=== PATIENT | female | born 1960 | race Caucasian/White ===

== ENCOUNTER 2022-05-09 14:06 | Outpatient (CLI) | payer OTHER | END 2022-05-09 14:07 | disposition home or self-care (01) | LOC: MRI 14:06 | PROVIDERS: ATTEND Podiatrist | DX: L97.501 Non-pressure chronic ulcer of other part of unspecified foot limited to breakdown of skin (principal) ==

== ENCOUNTER 2023-02-20 09:25 | Inpatient (IN) | payer OTHER ==
[2023-02-20] MEDS ORDERED: fentaNYL 50 mcg/mL 1 mL Vial ONE ×2 (10:14)
[2023-02-20] MEDS ORDERED: Pantoprazole 40 MG VIAL ONE (10:20)
[2023-02-20 10:31] LABS: Hemoglobin 10.7 g/dL (12.0-16.0); Mean Corpuscular HGB CONC 32.4 g/dL (32.0-36.0); Mean Corpuscular Hemoglobin 35.2 pg (27.0-31.0); Mean Platelet Volume 7.7 fL (7.4-10.4); Platelet Count 313 10x3/uL (130-400); RBC Distribution Width 13.6 % (11.5-14.5); Red Blood Cell (RBC) Count 3.06 mill/uL (4.20-5.40); White Blood Cell (WBC) Count 13.7 10x3/uL (4.8-10.8)
[2023-02-20 10:32] LABS: #Basophils 0.1 thou/uL (0.0-0.2); #Eosinphils 0.1 thou/uL (0.0-0.7); #Lymphocytes 2.1 thou/uL (1.20-3.40); #Monocytes 1.2 thou/uL (0.11-0.59); #Neutrophils 10.1 thou/uL (1.40-6.50); %Basophils 0.9 % (0.0-1.0); %Eosinophils 0.8 % (0.0-10.0); %Lymphocytes 15.2 % (21.0-51.0); %Monocytes 9.1 % (0.0-10.0)
[2023-02-20 10:47] LABS: INR-International Normal Ratio 0.9; Prothrombin Time 12.7 sec (12.0-14.7)
[2023-02-20 10:51] LABS: ALT (SGPT) 48 U/L (8-55); AST (SGOT) 76 U/L (5-34); Albumin 3.2 g/dL (3.4-4.8); Alkaline Phosphatase 104 U/L (40-110); Anion Gap 16 mmol/L (10-20); BUN (Urea Nitrogen) 10 mg/dL (9.8-20.1); Bilirubin, Total 0.6 mg/dL (0.2-1.2); Calc. Creatinine Clearance 0 mL/min (70-130); Calcium 8.2 mg/dL (7.8-10.44); Carbon Dioxide 20 mmol/L (23-31); Chloride 99 mmol/L (98-107); Estimated GFR 92; Globulin 3.2 g/dL (2.4-3.5); Glucose 92 mg/dL (80-115); Potassium 3.7 mmol/L (3.5-5.1); Protein, Total 6.4 g/dL (5.8-8.1); Sodium 131 mmol/L (136-145)
[2023-02-20 10:54] LABS: PTT 29.8 sec (22.9-36.1)
[2023-02-20 11:01] LABS: MDiff Complete? YES; Macrocytosis SLIGHT = 6-15 cells (100X) (0-5/hpf); Platelet Morphology Comment Appears Adequate; Polychromasia SLIGHT = 2-3 cells (100X) (0-2/hpf)
[2023-02-20] MEDS ORDERED: cefTRIAXone (ROCEPHIN) 2 GM VIAL ONE (11:19)
[2023-02-20] MEDS ORDERED: Morphine 4 MG/ML VIAL ONE (12:06)
[2023-02-20] MEDS ORDERED: Cyclobenzaprine 10 MG TAB ONE (12:06)
[2023-02-20] MEDS ORDERED: Morphine 4 MG/ML VIAL SLOW IVP PRN (12:11)
[2023-02-20] MEDS ORDERED: hydrALAZINE 20 MG/ML VIAL SLOW IVP PRN (12:11)
[2023-02-20] MEDS ORDERED: Dextrose 5% in Water 1,000 ML IV PRN (12:11)
[2023-02-20] MEDS ORDERED: Ondansetron PF 4 MG/2 ML Vial IVP PRN (12:11)
[2023-02-20] MEDS ORDERED: Dextrose 50% Abboject 50 ML SYRINGE SLOW IVP PRN (12:11)
[2023-02-20 12:18] LABS: Bilirubin Negative (Negative); Blood, Urine Negative (Negative); Clarity Turbid (Clear); Glucose, Urine (Dipstick) Normal (Negative); Ketone, Urine Trace mg/dL (Negative); Leukocyte Negative Leu/uL (Negative); Nitrite Negative (Negative); Protein, Urine (Dipstick) Negative (Neg-Trace); Specific Gravity, Urine 1.012 (1.002-1.036); Urobilinogen Normal mg/dL (Less than 2)
[2023-02-20 12:43] LABS: Alcohol 211 mg/dL (Less than 10); Magnesium 1.6 mg/dL (1.6-2.6)
[2023-02-20] MEDS ORDERED: Acetaminophen 500 MG TAB PO SCH (13:15)
[2023-02-20] MEDS ORDERED: traMADol HCl 50 MG TAB PO SCH (13:15)
[2023-02-20 13:21] LABS: Phosphorus 3.3 mg/dL (2.3-4.7)
[2023-02-20 13:40] LABS: Lactic Acid 2.4 mmol/L (0.5-2.2)
[2023-02-20] MEDS ORDERED: Magnesium 2 GM/50 ML(in water) 2 GM in Premix Bag 1 BAG IVPB SCH (15:00)
[2023-02-20] MEDS: Gabapentin 300 MG CAP PO SCH ×2 (15:19→21:07)
[2023-02-20] MEDS ORDERED: CEFAZOLIN 2 GM in Sodium Chloride 0.9% 100 ML IVPB SCH (16:15)
[2023-02-20] MEDS: Acetaminophen 500 MG TAB PO SCH (18:02)
[2023-02-20] MEDS: traMADol HCl 50 MG TAB PO SCH (18:02)
[2023-02-20] MEDS: Oxazepam 10 MG CAP PO SCH (18:03)
[2023-02-20] MEDS ORDERED: Famotidine 20 MG TAB PO SCH (21:00)
[2023-02-20] MEDS: Cyclobenzaprine 10 MG TAB PO PRN (21:07)
[2023-02-20] MEDS: Pantoprazole 40 MG VIAL IVP SCH (21:08)
[2023-02-20] MEDS: Senokot S 8.6-50 MG TAB PO SCH (21:08)
[2023-02-20 21:17] VITALS: BMI 24.6
[2023-02-21] MEDS: Acetaminophen 500 MG TAB PO SCH ×5 (00:49→23:44)
[2023-02-21] MEDS: Oxazepam 10 MG CAP PO SCH ×5 (00:49→23:44)
[2023-02-21] MEDS: traMADol HCl 50 MG TAB PO SCH ×5 (00:50→23:43)
[2023-02-21 05:39] LABS: #Basophils 0.1 thou/uL (0.0-0.2); #Eosinphils 0.2 thou/uL (0.0-0.7); #Lymphocytes 1.7 thou/uL (1.20-3.40); #Monocytes 1.2 thou/uL (0.11-0.59); #Neutrophils 6.4 thou/uL (1.40-6.50); %Basophils 1.1 % (0.0-1.0); %Eosinophils 1.6 % (0.0-10.0); %Monocytes 12.8 % (0.0-10.0); %Neutrophils 66.5 % (42.0-75.0); Hemoglobin 9.1 g/dL (12.0-16.0); Mean Corpuscular HGB CONC 34.9 g/dL (32.0-36.0); Mean Platelet Volume 8.2 fL (7.4-10.4); Platelet Count 238 10x3/uL (130-400); RBC Distribution Width 13.5 % (11.5-14.5); Red Blood Cell (RBC) Count 2.39 mill/uL (4.20-5.40); White Blood Cell (WBC) Count 9.7 10x3/uL (4.8-10.8)
[2023-02-21 06:00] LABS: Anion Gap 11 mmol/L (10-20); BUN (Urea Nitrogen) 16 mg/dL (9.8-20.1); Calc. Creatinine Clearance 90 mL/min (70-130); Calcium 8.2 mg/dL (7.8-10.44); Carbon Dioxide 26 mmol/L (23-31); Chloride 100 mmol/L (98-107); Estimated GFR 84; Glucose 97 mg/dL (80-115); Magnesium 2.1 mg/dL (1.6-2.6); Phosphorus 3.5 mg/dL (2.3-4.7); Potassium 4.8 mmol/L (3.5-5.1); Sodium 132 mmol/L (136-145)
[2023-02-21] MEDS ORDERED: Multivitamin W/ Minerals 1 TAB PO SCH (09:00)
[2023-02-21] MEDS ORDERED: Folic Acid 1 MG TAB PO SCH (09:00)
[2023-02-21] MEDS: Gabapentin 300 MG CAP PO SCH ×3 (09:15→19:10)
[2023-02-21] MEDS: Thiamine 100 MG TAB PO SCH (09:16)
[2023-02-21] MEDS: Senokot S 8.6-50 MG TAB PO SCH ×2 (09:16→19:09)
[2023-02-21] MEDS: Polyethylene Glycol 3350 17 GM Packet PO SCH (09:16)
[2023-02-21] MEDS ORDERED: CEFAZOLIN 2 GM VIAL ONE (15:56)
[2023-02-21] MEDS ORDERED: Sodium Chloride 0.9% 100 ML ONE (15:56)
[2023-02-21] MEDS ORDERED: Dexamethasone 20 MG/5 ML VIAL ONE (16:09)
[2023-02-21] MEDS ORDERED: Ondansetron PF 4 MG/2 ML Vial ONE (16:09)
[2023-02-21] MEDS ORDERED: PROPOFOL 200 MG/20 ML VIAL ONE (16:09)
[2023-02-21] MEDS ORDERED: Lidocaine 1% PF 5 ML VIAL ONE (16:09)
[2023-02-21] MEDS ORDERED: HYDROmorphone 2 MG/ML VIAL SLOW IVP PRN (17:31)
[2023-02-21] MEDS ORDERED: Ondansetron HCl/PF 4 MG/2 ML Vial IVP PRN (17:31)
[2023-02-21] MEDS ORDERED: HYDROmorphone 2 MG/ML VIAL ONE (17:54)
[2023-02-21] MEDS ORDERED: fentaNYL 50 mcg/mL 1 mL Vial ONE (18:23)
[2023-02-21] MEDS: Cyclobenzaprine 10 MG TAB PO PRN (22:10)
[2023-02-21] MEDS: Pantoprazole 40 MG VIAL IVP SCH (22:11)
[2023-02-21] MEDS: CEFAZOLIN 2 GM in Sodium Chloride 0.9% 100 ML IVPB SCH (23:52)
[2023-02-22] MEDS: traMADol HCl 50 MG TAB PO PRN (03:07)
[2023-02-22] MEDS: traMADol HCl 50 MG TAB PO SCH ×5 (03:07→22:53)
[2023-02-22] MEDS: Cyclobenzaprine 10 MG TAB PO PRN ×2 (03:09→23:54)
[2023-02-22 05:58] LABS: #Lymphocytes 0.8 thou/uL (1.20-3.40); #Monocytes 0.5 thou/uL (0.11-0.59); #Neutrophils 10.2 thou/uL (1.40-6.50); %Eosinophils 0.2 % (0.0-10.0); %Lymphocytes 6.5 % (21.0-51.0); %Neutrophils 89.2 % (42.0-75.0); Hemoglobin 8.3 g/dL (12.0-16.0); Mean Corpuscular HGB CONC 33.7 g/dL (32.0-36.0); Mean Corpuscular Hemoglobin 37.3 pg (27.0-31.0); Mean Platelet Volume 8.5 fL (7.4-10.4); Platelet Count 235 10x3/uL (130-400); RBC Distribution Width 13.2 % (11.5-14.5); Red Blood Cell (RBC) Count 2.22 mill/uL (4.20-5.40); White Blood Cell (WBC) Count 11.5 10x3/uL (4.8-10.8)
[2023-02-22 06:23] LABS: Anion Gap 11 mmol/L (10-20); BUN (Urea Nitrogen) 12 mg/dL (9.8-20.1); Calc. Creatinine Clearance 91 mL/min (70-130); Calcium 8.1 mg/dL (7.8-10.44); Carbon Dioxide 25 mmol/L (23-31); Chloride 103 mmol/L (98-107); Estimated GFR 85; Glucose 181 mg/dL (80-115); Magnesium 1.9 mg/dL (1.6-2.6); Phosphorus 3.2 mg/dL (2.3-4.7); Potassium 4.1 mmol/L (3.5-5.1); Sodium 135 mmol/L (136-145)
[2023-02-22] MEDS: Acetaminophen 500 MG TAB PO SCH ×4 (06:34→22:54)
[2023-02-22] MEDS: Oxazepam 10 MG CAP PO SCH ×4 (06:35→22:54)
[2023-02-22] MEDS ORDERED: Gabapentin 300 MG CAP PO PRN (07:57)
[2023-02-22] MEDS ORDERED: Non-Formulary Item 1 EACH (Multivit-Min/Iron/Folic/Lutein [Multivitamin Women 50 Plus Tab PO SCH (09:00)
[2023-02-22] MEDS ORDERED: Non-Formulary Item 1 EACH (Atorvastatin Calcium [Lipitor] 80 MG Tablet) PO SCH (09:00)
[2023-02-22] MEDS ORDERED: Citalopram 20 MG TAB PO SCH (09:00)
[2023-02-22] MEDS ORDERED: Folic Acid 1 MG TAB PO SCH (09:00)
[2023-02-22] MEDS: CEFAZOLIN 2 GM in Sodium Chloride 0.9% 100 ML IVPB SCH (09:14)
[2023-02-22] MEDS: Bupropion 150 MG XL TAB PO SCH (09:18)
[2023-02-22] MEDS: Folic Acid 1 MG TAB PO SCH (09:18)
[2023-02-22] MEDS: Gabapentin 300 MG CAP PO SCH ×3 (09:19→20:35)
[2023-02-22] MEDS: Polyethylene Glycol 3350 17 GM Packet PO SCH (09:20)
[2023-02-22] MEDS: Senokot S 8.6-50 MG TAB PO SCH ×2 (09:21→20:35)
[2023-02-22] MEDS: Citalopram 20 MG TAB PO SCH (09:21)
[2023-02-22] MEDS: Multivitamin W/ Minerals 1 TAB PO SCH (09:21)
[2023-02-22] MEDS: Thiamine 100 MG TAB PO SCH (09:21)
[2023-02-22] MEDS ORDERED: Aluminum & Magnesium Hydroxide 60 ML, Lidocaine 2% Viscous Solution 30 ML, diphenhydrAM... SSW PRN (19:15)
[2023-02-22] MEDS: Atorvastatin Calcium 40 MG TAB PO SCH (20:34)
[2023-02-22] MEDS: Aluminum & Magnesium Hydroxide 60 ML, Lidocaine 2% Viscous Solution 30 ML, diphenhydrAM... SSW PRN (20:36)
[2023-02-23] MEDS: traMADol HCl 50 MG TAB PO PRN ×3 (02:46→21:14)
[2023-02-23] MEDS: Acetaminophen 500 MG TAB PO SCH ×3 (05:33→17:12)
[2023-02-23] MEDS: traMADol HCl 50 MG TAB PO SCH ×3 (05:33→17:12)
[2023-02-23] MEDS: Aluminum & Magnesium Hydroxide 60 ML, Lidocaine 2% Viscous Solution 30 ML, diphenhydrAM... SSW PRN ×2 (05:34→21:15)
[2023-02-23] MEDS: Oxazepam 10 MG CAP PO SCH ×3 (05:34→17:12)
[2023-02-23 07:36] LABS: #Eosinphils 0.1 thou/uL (0.0-0.7); #Lymphocytes 1.9 thou/uL (1.20-3.40); #Neutrophils 6.3 thou/uL (1.40-6.50); %Basophils 0.2 % (0.0-1.0); %Eosinophils 0.8 % (0.0-10.0); %Lymphocytes 20.7 % (21.0-51.0); %Monocytes 10.7 % (0.0-10.0); %Neutrophils 67.6 % (42.0-75.0); Hemoglobin 7.6 g/dL (12.0-16.0); Mean Corpuscular HGB CONC 32.3 g/dL (32.0-36.0); Mean Corpuscular Hemoglobin 36.2 pg (27.0-31.0); Mean Platelet Volume 7.7 fL (7.4-10.4); Platelet Count 318 10x3/uL (130-400); RBC Distribution Width 13.4 % (11.5-14.5); White Blood Cell (WBC) Count 9.3 10x3/uL (4.8-10.8)
[2023-02-23] MEDS ORDERED: MAGIC MOUTHWASH SSW PRN (08:21)
[2023-02-23] MEDS: Thiamine 100 MG TAB PO SCH (08:29)
[2023-02-23] MEDS: Senokot S 8.6-50 MG TAB PO SCH ×2 (08:29→21:10)
[2023-02-23] MEDS: Ascorbic Acid 500 mg Chewable Tablet PO SCH ×2 (08:29→21:10)
[2023-02-23] MEDS: Bupropion 150 MG XL TAB PO SCH (08:29)
[2023-02-23] MEDS: Gabapentin 300 MG CAP PO SCH ×3 (08:29→21:10)
[2023-02-23] MEDS: Folic Acid 1 MG TAB PO SCH (08:29)
[2023-02-23] MEDS: Citalopram 20 MG TAB PO SCH (08:29)
[2023-02-23] MEDS: Multivitamin W/ Minerals 1 TAB PO SCH (08:29)
[2023-02-23] MEDS: Polyethylene Glycol 3350 17 GM Packet PO SCH (08:30)
[2023-02-23 08:42] LABS: Anion Gap 13 mmol/L (10-20); BUN (Urea Nitrogen) 12 mg/dL (9.8-20.1); Calc. Creatinine Clearance 106 mL/min (70-130); Calcium 8.3 mg/dL (7.8-10.44); Carbon Dioxide 22 mmol/L (23-31); Chloride 107 mmol/L (98-107); Estimated GFR 98; Glucose 66 mg/dL (80-115); Magnesium 1.6 mg/dL (1.6-2.6); Potassium 3.7 mmol/L (3.5-5.1); Sodium 138 mmol/L (136-145)
[2023-02-23] MEDS ORDERED: Potassium Phosphate 30 MMOL in Sodium Chloride 0.9% 250 ML 250 ML IVPB SCH (10:00)
[2023-02-23] MEDS ORDERED: Magnesium 2 GM/50 ML(in water) 2 GM in Premix Bag 1 BAG IVPB SCH (10:00)
[2023-02-23] MEDS: Ferrous Sulfate 325 MG TAB PO SCH (17:12)
[2023-02-23] MEDS: Atorvastatin Calcium 40 MG TAB PO SCH (21:10)
[2023-02-23] MEDS: Cyclobenzaprine 10 MG TAB PO PRN (21:10)
[2023-02-24] MEDS: Oxazepam 10 MG CAP PO SCH ×5 (00:07→23:46)
[2023-02-24] MEDS: Acetaminophen 500 MG TAB PO SCH ×5 (00:07→23:45)
[2023-02-24] MEDS: traMADol HCl 50 MG TAB PO SCH ×5 (00:08→23:46)
[2023-02-24] MEDS: Cyclobenzaprine 10 MG TAB PO PRN ×3 (04:27→20:48)
[2023-02-24 07:00] LABS: #Basophils 0.1 thou/uL (0.0-0.2); #Eosinphils 0.3 thou/uL (0.0-0.7); #Lymphocytes 1.9 thou/uL (1.20-3.40); #Monocytes 1.3 thou/uL (0.11-0.59); #Neutrophils 5.9 thou/uL (1.40-6.50); %Eosinophils 3.7 % (0.0-10.0); %Lymphocytes 20.5 % (21.0-51.0); %Monocytes 13.1 % (0.0-10.0); %Neutrophils 61.8 % (42.0-75.0); Mean Corpuscular HGB CONC 31.9 g/dL (32.0-36.0); Mean Corpuscular Hemoglobin 35.8 pg (27.0-31.0); Mean Platelet Volume 7.4 fL (7.4-10.4); Platelet Count 389 10x3/uL (130-400); RBC Distribution Width 13.2 % (11.5-14.5); Red Blood Cell (RBC) Count 2.23 mill/uL (4.20-5.40); White Blood Cell (WBC) Count 9.5 10x3/uL (4.8-10.8)
[2023-02-24 07:34] LABS: Anion Gap 10 mmol/L (10-20); BUN (Urea Nitrogen) 14 mg/dL (9.8-20.1); Calc. Creatinine Clearance 98 mL/min (70-130); Calcium 8.8 mg/dL (7.8-10.44); Carbon Dioxide 25 mmol/L (23-31); Chloride 105 mmol/L (98-107); Estimated GFR 94; Glucose 94 mg/dL (80-115); Magnesium 1.4 mg/dL (1.6-2.6); Phosphorus 3.1 mg/dL (2.3-4.7); Potassium 4.2 mmol/L (3.5-5.1); Sodium 136 mmol/L (136-145)
[2023-02-24] MEDS: Ferrous Sulfate 325 MG TAB PO SCH ×2 (08:16→17:41)
[2023-02-24] MEDS: Senokot S 8.6-50 MG TAB PO SCH ×2 (08:17→21:25)
[2023-02-24] MEDS: Thiamine 100 MG TAB PO SCH (08:18)
[2023-02-24] MEDS: Multivitamin W/ Minerals 1 TAB PO SCH (08:18)
[2023-02-24] MEDS: Bupropion 150 MG XL TAB PO SCH (08:18)
[2023-02-24] MEDS: Gabapentin 300 MG CAP PO SCH ×3 (08:18→20:47)
[2023-02-24] MEDS: Folic Acid 1 MG TAB PO SCH (08:18)
[2023-02-24] MEDS: Ascorbic Acid 500 mg Chewable Tablet PO SCH ×2 (08:18→20:47)
[2023-02-24] MEDS: Citalopram 20 MG TAB PO SCH (08:18)
[2023-02-24] MEDS: Polyethylene Glycol 3350 17 GM Packet PO SCH (08:18)
[2023-02-24] MEDS ORDERED: Magnesium Sulfate In Water 4 GM in Premix Bag 1 BAG IVPB SCH (08:30)
[2023-02-24] MEDS ORDERED: Magnesium 2 GM/50 ML(in water) 4 GM in Premix Bag 1 BAG IVPB SCH (08:30)
[2023-02-24] MEDS: Aluminum & Magnesium Hydroxide 60 ML, Lidocaine 2% Viscous Solution 30 ML, diphenhydrAM... SSW PRN (09:46)
[2023-02-24] MEDS: Atorvastatin Calcium 40 MG TAB PO SCH (20:48)
[2023-02-25] MEDS: traMADol HCl 50 MG TAB PO SCH ×2 (05:00→11:32)
[2023-02-25] MEDS: Acetaminophen 500 MG TAB PO SCH ×2 (05:01→11:32)
[2023-02-25] MEDS: Cyclobenzaprine 10 MG TAB PO PRN (05:01)
[2023-02-25] MEDS: Oxazepam 10 MG CAP PO SCH ×2 (05:01→11:33)
[2023-02-25 07:06] LABS: #Basophils 0.1 thou/uL (0.0-0.2); #Eosinphils 0.5 thou/uL (0.0-0.7); #Lymphocytes 1.8 thou/uL (1.20-3.40); #Monocytes 1.4 thou/uL (0.11-0.59); #Neutrophils 6.6 thou/uL (1.40-6.50); %Basophils 0.9 % (0.0-1.0); %Eosinophils 4.7 % (0.0-10.0); %Lymphocytes 17.2 % (21.0-51.0); %Monocytes 13.5 % (0.0-10.0); %Neutrophils 63.7 % (42.0-75.0); Hemoglobin 8.4 g/dL (12.0-16.0); Mean Corpuscular HGB CONC 32.4 g/dL (32.0-36.0); Mean Corpuscular Hemoglobin 35.9 pg (27.0-31.0); Mean Platelet Volume 7.3 fL (7.4-10.4); Platelet Count 461 10x3/uL (130-400); RBC Distribution Width 13.3 % (11.5-14.5); Red Blood Cell (RBC) Count 2.35 mill/uL (4.20-5.40); White Blood Cell (WBC) Count 10.4 10x3/uL (4.8-10.8)
[2023-02-25] MEDS ORDERED: tiZANidine HCl 4 MG TAB PO PRN (08:36)
[2023-02-25] MEDS: Multivitamin W/ Minerals 1 TAB PO SCH (09:02)
[2023-02-25] MEDS: Ferrous Sulfate 325 MG TAB PO SCH (09:02)
[2023-02-25] MEDS: Gabapentin 300 MG CAP PO SCH (09:02)
[2023-02-25] MEDS: Thiamine 100 MG TAB PO SCH (09:03)
[2023-02-25] MEDS: Bupropion 150 MG XL TAB PO SCH (09:03)
[2023-02-25] MEDS: Ascorbic Acid 500 mg Chewable Tablet PO SCH (09:03)
[2023-02-25] MEDS: Folic Acid 1 MG TAB PO SCH (09:03)
[2023-02-25] MEDS: Citalopram 20 MG TAB PO SCH (09:03)
[2023-02-25] MEDS: Polyethylene Glycol 3350 17 GM Packet PO SCH (09:41)
[2023-02-25] MEDS: Senokot S 8.6-50 MG TAB PO SCH (09:41)
[2023-02-25] MEDS: traMADol HCl 50 MG TAB PO PRN (10:22)
[2023-02-25 11:37] VITALS: BP 119/82; TEMP 100.3
== END 2023-02-25 14:10 | DRG 481 ==
LOC: ERS 09:25 → ERHOLD 10:58 → SURG A 14:15
PROVIDERS: ADMIT Surgery; ATTEND Surgery
PROC: 0QSC04Z Reposition Left Lower Femur with Internal Fixation Device, Open Approach (ICD-10-PCS; principal; 2023-02-21)
DX: S72.452A Displaced supracondylar fracture without intracondylar extension of lower end of left femur, initial encounter for closed fracture (principal); E87.1 Hypo-osmolality and hyponatremia; F32.A Depression, unspecified; F41.9 Anxiety disorder, unspecified; F17.210 Nicotine dependence, cigarettes, uncomplicated; G62.9 Polyneuropathy, unspecified; I10 Essential (primary) hypertension; E78.5 Hyperlipidemia, unspecified; F10.129 Alcohol abuse with intoxication, unspecified; W19.XXXA Unspecified fall, initial encounter; Y92.9 Unspecified place or not applicable; Z98.51 Tubal ligation status; Z98.890 Other specified postprocedural states
CPT/HCPCS: 36415; 71045; 80048; 80053; 80307; 83605; 83735; 84100; 84484; 85025; 85610; 85730; 86850; 86900; 86901; 87040; 87086; 93005; 96365; 96375; 97139; C1713; C9113; G0390; J0696; J1100; J1170; J1650; J2270; J2405; J2704; J3010; J3475; J3490; J7050; Q0163

== ENCOUNTER → 2023-03-12 | Day surgery (SDC) | payer OTHER ==
[2023-03-11 12:25] VITALS: BMI 22.8
[~2023-03-12] MED LIST: Lidocaine 1% PF 5 ML VIAL ONE; Sodium Bicarbonate 2.5 MEQ/5 ML VIAL ONE
[2023-03-12 15:23] VITALS: BP 136/81
== END | disposition home or self-care (01) ==
LOC: ULT 13:33
PROVIDERS: ATTEND Student in an Organized Health Care Education/Training Program
PROC: 0J953ZX Drainage of Left Neck Subcutaneous Tissue and Fascia, Percutaneous Approach, Diagnostic (ICD-10-PCS; principal; 2023-03-12)
DX: C76.0 Malignant neoplasm of head, face and neck (principal); R59.0 Localized enlarged lymph nodes; Z79.899 Other long term (current) drug therapy
CPT/HCPCS: 10005; 88173; 88305; 88341; 88342

== ENCOUNTER 2023-03-15 11:46 | Outpatient (CLI) | payer OTHER | END 2023-03-15 11:47 | disposition home or self-care (01) | LOC: RAD 11:46 | PROVIDERS: ATTEND Radiology Radiation Oncology | DX: C10.9 Malignant neoplasm of oropharynx, unspecified (principal); C77.0 Secondary and unspecified malignant neoplasm of lymph nodes of head, face and neck | CPT/HCPCS: 74230 ==